=== PATIENT | male | born 1975 | race Caucasian/White ===

== ENCOUNTER 2016-10-31 01:02 | Emergency (ER) | payer OTHER ==
[~2016-10-31] VITALS: Ht 177.8 cm; Wt 100.2 kg
[~2016-10-31 01:02] MED LIST: AMBIEN5 MG PO; ANAPROX DS550 M1 PO; ATARAX,VISTARIL50 MG PO; BACTRIM,SEPT1 TABLET PO; BENICAR20 MG PO; BUSPAR15 MG PO; BUSPIRONE HCL15 MG PO; CEFDINIR300 MG PO; CIPRO500 MG PO; CITRATE OF MAG296 ML PO; DISKETS40 MG PO; Desyrel PO; FLEXERIL10 MG PO; FLEXERIL5 MG PO; HYDROCODON-ACE1 EAC7 PO; IBUPROFEN800 MG PO; IMITREX25 MG PO; INDOCIN25 MG PO; INDOCIN50 MG PO; KEFLEX500 MG PO; LEXAPRO10 MG PO; LIDODERM 5% P1 PATCH TD; LISINOPRIL10 MG PO; LOSARTAN-HCTZ1 EACH PO; MECLIZINE HCL25 MG PO; METHADONE HCL40 MG PO; METHADONE10 MG PO; METHADONE10 MG/1 M1 PO; METHADOSE40 MG PO; MOBIC15 MG PO; MOBIC7.5 MG PO; MOTRIN IB200 MG PO; MOTRIN600 MG PO; MOTRIN800 MG PO; NAPROSYN500 MG PO; NAPROXEN500 MG PO; NO HOME MEDS; NOHOMEMEDS; NORCO 5/3251 TABLET PO; NORCO 7.5/321 TABLET PO; PERCOCET 5/31 TABLET PO; POLYTRIM EYE DR10 ML LEFT EYE; PRAVACHOL10 MG PO; PRAVASTATIN SOD10 MG PO; PREDNISONE10 MG PO; PREDNISONE20 MG PO; PROMETHAZINE HC25 M1 PO; REGLAN10 MG PO; SEROQUEL12.5 MG PO; SERTRALINE HCL100 MG PO; SERTRALINE HCL50 MG PO; SKELAXIN800 MG PO; TESTOSTERO200 MG/12 IM; TORADOL10 MG PO; TYLENOL WITH C1 EACH PO; ULTRAM50 MG PO; VALIUM5 MG PO; VICODIN 5-3001 EACH PO; VICODIN ES 7.51 EAC1 PO; ZOLOFT50 MG PO; ZOLPIDEM TARTRA10 MG PO
[2016-10-31 02:08] LABS: HEMATOCRIT 39.3 % (38.0-50.0); MCH 27.2 PG (29.0-34.0); MCHC 33.3 G/DL (30.0-36.0); MCV 81.5 FL (86-99); MEAN PLAT.VOLUME 9.4 uM^3 (9.0-12.4); PLATELET COUNT 374 K/uL (156-360); RBC DIS.WIDTH-CV 13.6 % (11.8-14.6); RBC DIS.WIDTH-SD 40.2 % (39-53); RED BLOOD COUNT 4.82 M/uL (4.00-5.50); WHITE BLOOD COUNT 11.6 K/uL (4.1-10.2)
[2016-10-31 02:16] LABS: CHLORIDE 104 mEq/L (99-109); POTASSIUM 3.6 mEq/L (3.7-5.4); SODIUM 141 mEq/L (136-147)
[2016-10-31 02:18] LABS: GLUCOSE 110 mg/dL (70-99)
[2016-10-31 02:19] LABS: ANION GAP 10 MEQ/L (2-14)
[2016-10-31 02:20] LABS: TOTAL BILIRUBIN 0.4 mg/dL (0.0-1.0)
[2016-10-31 02:21] LABS: ALKALINE PHOSPHATASE 83 IU/L (3-129); SERUM ETHYL ALCOHOL 69 mg/dL
[2016-10-31 02:22] LABS: GFR ESTIMATE (CALCULATED) > 59 mL/min/
[2016-10-31 02:23] LABS: UREA NITROGEN (BUN) 10 mg/dL (9-23)
[2016-10-31] MEDS ORDERED: LOMOTIL TABLET1 EACH PO (06:18)
[2016-10-31] MEDS ORDERED: TRAZODONE HCL50 MG PO (06:18)
[2016-10-31] MEDS ORDERED: TORADOL10 MG PO (06:18)
[2016-10-31] MEDS ORDERED: CLONIDINE HCL0.1 MG PO (06:18)
[2016-10-31 06:44] VITALS: BP 122/74
== END 2016-10-31 06:54 | disposition home or self-care (01) ==
LOC: EME 01:02
PROVIDERS: Emergency Medicine
DX: F11.23 Opioid dependence with withdrawal (principal); F32.9 Major depressive disorder, single episode, unspecified; F60.9 Personality disorder, unspecified; Z88.6 Allergy status to analgesic agent; Z88.5 Allergy status to narcotic agent; F17.200 Nicotine dependence, unspecified, uncomplicated; Z91.5 Personal history of self-harm; E78.5 Hyperlipidemia, unspecified
CPT/HCPCS: 80053; 81003; 85027; 90839; 99281; 99285; G0480

== ENCOUNTER 2017-03-28 21:45 | Emergency (ER) | payer OTHER ==
[~2017-03-28] VITALS: Ht 177.8 cm; Wt 96.8 kg
[~2017-03-28 21:45] MED LIST changes: +CLONIDINE HCL0.1 MG PO; +LOMOTIL TABLET1 EACH PO; +TRAZODONE HCL50 MG PO
[2017-03-28 22:37] LABS: HEMATOCRIT 40.8 % (38.0-50.0); MCH 27.2 PG (29.0-34.0); MCHC 32.4 G/DL (30.0-36.0); MCV 84.1 FL (86-99); MEAN PLAT.VOLUME 9.5 uM^3 (9.0-12.4); NRBC (%) 0.2 /100 WBC (0-0); PLATELET COUNT 384 K/uL (156-360); RBC DIS.WIDTH-CV 14.2 % (11.8-14.6); RBC DIS.WIDTH-SD 43.6 % (39-53); RED BLOOD COUNT 4.85 M/uL (4.00-5.50); WHITE BLOOD COUNT 12.9 K/uL (4.1-10.2)
[2017-03-28 22:48] LABS: CHLORIDE 102 mEq/L (99-109); POTASSIUM 3.8 mEq/L (3.7-5.4); SODIUM 139 mEq/L (136-147)
[2017-03-28 22:50] LABS: GLUCOSE 96 mg/dL (70-99)
[2017-03-28 22:51] LABS: ANION GAP 10 MEQ/L (2-14)
[2017-03-28 22:54] LABS: GFR ESTIMATE (CALCULATED) > 59 mL/min/
[2017-03-28 22:55] LABS: UREA NITROGEN (BUN) 17 mg/dL (9-23)
[2017-03-28 22:58] LABS: TROP-I INTERPRETATION NEGATIVE; TROPONIN-I < 0.01 ng/mL (0.0-0.30)
[2017-03-29 00:16] LABS: TROP-I INTERPRETATION NEGATIVE; TROPONIN-I < 0.01 ng/mL (0.0-0.30)
[2017-03-29 00:35] VITALS: BP 141/83
== END 2017-03-29 00:38 | disposition home or self-care (01) ==
LOC: EME 21:45
PROVIDERS: Physician Assistant
DX: R07.9 Chest pain, unspecified (principal); E78.5 Hyperlipidemia, unspecified; I10 Essential (primary) hypertension; F17.200 Nicotine dependence, unspecified, uncomplicated; Z82.49 Family history of ischemic heart disease and other diseases of the circulatory system; F32.9 Major depressive disorder, single episode, unspecified; Z88.6 Allergy status to analgesic agent
CPT/HCPCS: 71020; 80048; 84484; 85027; 93005

== ENCOUNTER 2017-03-30 23:52 | Emergency (ER) | payer OTHER ==
[~2017-03-30] VITALS: Ht 177.8 cm; Wt 95.2 kg
[2017-03-31 00:23] LABS: HEMATOCRIT 42.5 % (38.0-50.0); MCHC 32.5 G/DL (30.0-36.0); PLATELET COUNT 408 K/uL (156-360); RBC DIS.WIDTH-CV 13.9 % (11.8-14.6); RBC DIS.WIDTH-SD 42.2 % (39-53); RED BLOOD COUNT 5.12 M/uL (4.00-5.50); WHITE BLOOD COUNT 9.7 K/uL (4.1-10.2)
[2017-03-31 00:34] LABS: CHLORIDE 103 mEq/L (99-109); POTASSIUM 3.4 mEq/L (3.7-5.4); SODIUM 138 mEq/L (136-147)
[2017-03-31 00:36] LABS: GLUCOSE 112 mg/dL (70-99)
[2017-03-31 00:37] LABS: ANION GAP 11 MEQ/L (2-14)
[2017-03-31 00:40] LABS: GFR ESTIMATE (CALCULATED) > 59 mL/min/
[2017-03-31 00:41] LABS: UREA NITROGEN (BUN) 19 mg/dL (9-23)
[2017-03-31 00:45] LABS: TROP-I INTERPRETATION NEGATIVE; TROPONIN-I < 0.01 ng/mL (0.0-0.30)
[2017-03-31 00:46] LABS: D-DIMER ELISA < 0.15 mg/L FEU (< 0.57); INTER. NORMALIZED RATIO 1.1; PROTHROMBIN TIME 11.7 (9.2-11.2); PTT 30.6 (25-32)
[2017-03-31] MEDS ORDERED: DOLOPHINE HCL10 MG PO (01:12)
[2017-03-31 02:20] LABS: TROP-I INTERPRETATION NEGATIVE; TROPONIN-I < 0.01 ng/mL (0.0-0.30)
[2017-03-31] MEDS ORDERED: PREDNISONE50 MG PO (02:27)
[2017-03-31] MEDS ORDERED: AZITHROMYCIN250 MG PO (02:27)
[2017-03-31] MEDS ORDERED: VENTOLIN HFA18 GM IH (02:27)
[2017-03-31 02:48] VITALS: BP 110/83
== END 2017-03-31 02:49 | disposition home or self-care (01) ==
LOC: EME 23:52
PROVIDERS: Emergency Medicine
DX: J20.9 Acute bronchitis, unspecified (principal); Z86.79 Personal history of other diseases of the circulatory system; F17.200 Nicotine dependence, unspecified, uncomplicated; Z71.6 Tobacco abuse counseling
CPT/HCPCS: 71020; 80048; 83880; 84484; 85027; 85379; 85610; 85730; 93005; 94640; 99281; 99285; J1885; J7030; J7512

== ENCOUNTER 2018-05-08 22:47 | Emergency (ER) | payer OTHER ==
[~2018-05-08] VITALS: Ht 175.3 cm; Wt 91.5 kg
[~2018-05-08 22:47] MED LIST changes: +AZITHROMYCIN250 MG PO; +DOLOPHINE HCL10 MG PO; +PREDNISONE50 MG PO; +VENTOLIN HFA18 GM IH
[2018-05-08 23:49] LABS: HEMATOCRIT 44.1 % (38.0-50.0); HEMOGLOBIN 14.8 G/DL (12.5-16.6); MCH 28.1 PG (29.0-34.0); MCHC 33.6 G/DL (30.0-36.0); MCV 83.7 FL (86-99); PLATELET COUNT 415 K/uL (156-360); RBC DIS.WIDTH-CV 14.6 % (11.8-14.6); RBC DIS.WIDTH-SD 44.5 % (39-53); RED BLOOD COUNT 5.27 M/uL (4.00-5.50); WHITE BLOOD COUNT 14.5 K/uL (4.1-10.2)
[2018-05-08 23:55] LABS: ALBUMIN 4.9 g/dL (3.2-4.8); CHLORIDE 106 mEq/L (99-109); POTASSIUM 4.3 mEq/L (3.7-5.4); SODIUM 144 mEq/L (136-147)
[2018-05-08 23:58] LABS: GLUCOSE 101 mg/dL (70-99); TOTAL PROTEIN 8.1 g/dL (6.4-8.3)
[2018-05-09] LABS: TOTAL BILIRUBIN 0.3 mg/dL (0.0-1.0)
[2018-05-09 00:01] LABS: ALKALINE PHOSPHATASE 95 IU/L (3-129); CREATININE 0.9 mg/dL (0.6-1.3); GFR ESTIMATE (CALCULATED) > 59 mL/min/ (58.99-99999)
[2018-05-09 00:02] LABS: UREA NITROGEN (BUN) 13 mg/dL (9-23)
[2018-05-09 00:03] LABS: AST (GOT) 23 IU/L (2-34)
[2018-05-09 00:04] LABS: ALT (GPT) 26 IU/L (3-49)
[2018-05-09 00:05] LABS: LIPASE 9 U/L (1.0-51.0)
[2018-05-09 00:10] LABS: CK-MB 1.1 ng/mL (0.0-4.9)
[2018-05-09 01:15] LABS: CREATINE KINASE 107 IU/L (1-294); TOTAL CK 107 IU/L (1-294)
[2018-05-09] MEDS ORDERED: NORCO 5/3251 TABLET PO (02:25)
[2018-05-09 02:54] VITALS: BP 148/102
== END 2018-05-09 02:55 | disposition home or self-care (01) ==
LOC: EME 22:47
PROVIDERS: Emergency Medicine
PROC: 3E0234Z Introduction of Serum, Toxoid and Vaccine into Muscle, Percutaneous Approach (ICD-10-PCS; principal; 2018-05-08)
DX: S20.212A Contusion of left front wall of thorax, initial encounter (principal); S00.31XA Abrasion of nose, initial encounter; S60.311A Abrasion of right thumb, initial encounter; S60.811A Abrasion of right wrist, initial encounter; S40.812A Abrasion of left upper arm, initial encounter; S50.312A Abrasion of left elbow, initial encounter; S70.212A Abrasion, left hip, initial encounter; S60.419A Abrasion of unspecified finger, initial encounter; S00.81XA Abrasion of other part of head, initial encounter; S00.83XA Contusion of other part of head, initial encounter; V86.55XA Driver of 3- or 4- wheeled all-terrain vehicle (ATV) injured in nontraffic accident, initial encounter; Z23 Encounter for immunization; F17.200 Nicotine dependence, unspecified, uncomplicated
CPT/HCPCS: 70450; 70486; 71260; 72125; 80053; 82550; 82553; 83690; 85027; 86850; 86900; 86901; J2405; J3010; J7030